=== PATIENT | male | born 1975 | race Caucasian/White ===

== ENCOUNTER 2018-01-05 19:37 | Emergency (ER) | payer BC, OTHER ==
--- NOTE | 2018-01-05 20:22 | PDOC ---
Rapid Medical Evaluation Time Seen by Provider: 01/05/18 20:18 Medical Evaluation: Allergies Allergy/AdvReac Type Severity Reaction Status Date / Time No Known Drug Allergies Allergy Verified 01/15/15 11:31 NUTS Allergy Severe Swelling Uncoded 01/15/15 11:31 I have performed a brief in-person evaluation of this patient. The patient presents with a chief complaint of: atraumatic left knee pain since this morning. Doesn't want any pain medication that will put him to sleep. Has not taken anything for pain. Expects to have a negative xray and get an orthopedic referral Pertinent physical exam findings: minimal swelling to left knee. No erythema, streaking or warmth to knee I have ordered the following: xray left knee The patient will proceed to the ED for further evaluation. Discharge Disposition - Diagnosis Osteoarthritis Knee pain, left Qualifiers: Chronicity: acute Qualified Code(s): M25.562 - Pain in left knee - Referrals Referrals: Samuel Gibbons MD [Staff Physician] - - Patient Instructions - Post Discharge Activity
[2018-01-05 20:34] VITALS: BP 186/113; PULSE 106; TEMP 99.6; BMI 33.5
--- NOTE | 2018-01-05 22:08 | PDOC ---
History of Present Illness - History of Present Illness Initial Comments: 01/05/18 22:10 Patient is a 42M with PMHx of HTN, who presents to fast track with posterior knee pain since this morning. He states that last night he felt that his leg didn't feel right. He reports pain is localized right behind the knee. He denies recent trauma, travel, or strenuous activity. He denies recent shortness of breath. <Starr Burnett - Last Filed: 01/05/18 22:15> <Azra Jiménez - Last Filed: 01/05/18 22:40> - General Chief Complaint: Pain Stated Complaint: KNEE PAIN Time Seen by Provider: 01/05/18 20:18 Past History <Starr Burnett - Last Filed: 01/05/18 22:15> - Past Medical History Anemia: No Asthma: No Cancer: No Cardiac Disorders: No CVA: No COPD: No Dementia: No Diabetes: No Dialysis: No GI Disorders: No Disorders: No HTN: Yes (USUALLY HIGH EVEN TAKING MEDS) Hypercholesterolemia: No Kidney Stones: No Liver Disease: No Seizures: No Thyroid Disease: No - Surgical History Abdominal Surgery: No Appendectomy: No Cardiac Surgery: No Cholecystectomy: No Lung Surgery: No Neurologic Surgery: No - Suicide/Smoking/Psychosocial Hx Smoking Status: No Smoking History: Never smoked Have you smoked in the past 12 months: No Number of Cigarettes Smoked Daily: 0 Information on smoking cessation initiated: No Hx Alcohol Use: No Drug/Substance Use Hx: No Substance Use Type: Alcohol <Azra Jiménez - Last Filed: 01/05/18 22:40> - Past Medical History Allergies/Adverse Reactions: Allergies Allergy/AdvReac Type Severity Reaction Status Date / Time No Known Drug Allergies Allergy Verified 01/05/18 20:24 NUTS Allergy Severe Swelling Uncoded 01/15/15 11:31 Home Medications: Ambulatory Orders Diclofenac Sodium 75 mg PO BID #14 tablet. 01/05/18 Review of Systems - Review of Systems Comments:: 01/05/18 22:10 GENERAL/CONSTITUTIONAL: No fever or chills. No weakness. HEAD, EYES, EARS, NOSE AND THROAT: No change in vision. No ear pain or discharge. No sore throat. GASTROINTESTINAL: No nausea, vomiting, diarrhea or constipation. CARDIOVASCULAR: No chest pain or shortness of breath. RESPIRATORY: No cough, wheezing, or hemoptysis. MUSCULOSKELETAL: +right posterior knee pain. No neck or back pain. SKIN: No rash NEUROLOGIC: No headache, vertigo, loss of consciousness, or change in strength/ sensation. <Starr Burnett - Last Filed: 01/05/18 22:15> *Physical Exam - Vital Signs Last Vital Signs Temp Pulse Resp BP Pulse Ox 99.6 F 106 H 18 186/113 96 01/05/18 20:25 01/05/18 20:25 01/05/18 20:25 01/05/18 20:25 01/05/18 20:25 - Physical Exam Comments: 01/05/18 22:11 GENERAL: Awake, alert, and fully oriented, in no acute distress HEAD: No signs of trauma EYES: PERRLA, EOMI, sclera anicteric, conjunctiva clear ENT: Auricles normal inspection, hearing grossly normal, nares patent, oropharynx clear without exudates. Moist mucosa NECK: Normal ROM, supple, no lymphadenopathy, JVD, or masses LUNGS: Breath sounds equal, clear to auscultation bilaterally. No wheezes, and no crackles HEART: Regular rate and rhythm, normal S1 and S2, no murmurs, rubs or gallops ABDOMEN: Soft, nontender, normoactive bowel sounds. No guarding, no rebound. No masses EXTREMITIES: Mild tenderness to posterior aspect of left knee. No calf tenderness. No erythema, swelling, or tenderness to the rest of the knee. Normal range of motion. NEUROLOGICAL: Cranial nerves II through XII grossly intact. Normal speech, normal gait SKIN: Warm, Dry, normal turgor, no rashes or lesions noted. <Starr Burnett - Last Filed: 01/05/18 22:15> - Vital Signs Last Vital Signs Temp Pulse Resp BP Pulse Ox 99.6 F 106 H 18 186/113 96 01/05/18 20:25 01/05/18 20:25 01/05/18 20:25 01/05/18 20:25 01/05/18 20:25 <Azra Jiménez - Last Filed: 01/05/18 22:40> ED Treatment Course - RADIOLOGY Radiology Studies Ordered: Category Date Time Status DUPLEX VASCUL US-1 LEG [US] Stat Ultrasound 01/05/18 21:52 Ordered <Azra Jiménez - Last Filed: 01/05/18 22:40> Medical Decision Making - Medical Decision Making 01/05/18 22:15 Patient is a 42M who presents with posterior knee pain since this morning. X ray shows mild suprapatellar effusion. No pain to anterior aspect of left knee. Will order ultrasound to rule out DVT. <Starr Burnett - Last Filed: 01/05/18 22:15> - Medical Decision Making Ultrasound negative for DVT. Advised patient to take medication as prescribed and follow up with orthopedics this week. Advised patient of signs and symptoms for return to ED. Patient verbalized understanding and agrees to plan. <Azra Jiménez - Last Filed: 01/05/18 22:40> *DC/Admit/Observation/Transfer - Attestations Scribe Attestion: 01/05/18 22:12 Documentation prepared by Starr Burnett, acting as pediatrician/medical doctor for LYN Enciso. <Starr Burnett - Last Filed: 01/05/18 22:15> - Discharge Dispostion Admit: No <JessyAzra - Last Filed: 01/05/18 22:40> Diagnosis at time of Disposition: Osteoarthritis Knee pain, left Qualifiers: Chronicity: acute Qualified Code(s): M25.562 - Pain in left knee - Discharge Dispostion Disposition: HOME Condition at time of disposition: Stable - Prescriptions Prescriptions: Diclofenac Sodium 75 mg PO BID #14 tablet.dr - Referrals Referrals: Samuel Gibbons MD [Staff Physician] - - Patient Instructions Printed Discharge Instructions: DI for Knee Pain Additional Instructions: Please take medication as prescribed.You must follow up with an orthopedics THIS WEEK for further evaluation and a possible MRI or physical therapy. If you experience any swelling, redness, warmth, or increased pain to your knee, or you develop fever, chills, vomiting or diarrhea, or any new or worsening symptoms, please return to the ER. - Post Discharge Activity
== END 2018-01-05 22:58 | disposition home or self-care (01) ==
LOC: JERFT 19:37
DX: M17.12 Unilateral primary osteoarthritis, left knee (principal); M25.462 Effusion, left knee
CPT/HCPCS: 73560-TC-LT-FY; 93971-TC; 99281-25

== ENCOUNTER 2024-09-26 19:13 | Observation (INO) | payer BC, OTHER ==
[2024-09-26 20:20] VITALS: BMI 23.7
[2024-09-26 22:58] LABS: HEMATOCRIT 22.3 % (35.4-49); MCH 28.1 pg (25.7-33.7); MCHC 31.3 g/dl (32.0-35.9); MEAN CELL VOLUME 89.7 fl (80-96); MEAN PLT VOLUME 6.5 fl (7.5-11.1); PLATELET COUNT 352 10^3/uL (134-434); RBC 2.48 M/mm3 (4.00-5.60); WHITE BLOOD COUNT 11.4 K/mm3 (4.0-10.0)
[2024-09-26 23:16] LABS: CHLORIDE 102 mmol/L (98-107); POTASSIUM 4.7 mmol/L (3.5-5.1); SODIUM 134 mmol/L (136-145)
[2024-09-26 23:18] LABS: CALCIUM 8.8 mg/dL (8.5-10.1)
[2024-09-26 23:19] LABS: ALBUMIN 2.1 g/dl (3.4-5.0); ANION GAP 10 mmol/L (4-13); BLOOD UREA NITROGEN 56.3 mg/dL (7-18); CO2 23 mmol/L (21-32); GLUCOSE,RANDOM 92 mg/dL (74-106)
[2024-09-26 23:22] LABS: PHOSPHOROUS 4.3 mg/dL (2.5-4.9); SGOT/AST 16 U/L (15-37); SGPT/ALT 26 U/L (13-61)
[2024-09-26 23:23] LABS: BILIRUBIN,TOTAL 0.6 mg/dL (0.2-1); TOT PROT 6.7 g/dl (6.4-8.2)
[2024-09-26 23:25] LABS: ALK PHOS 151 U/L (45-117)
[2024-09-26 23:29] LABS: CREATININE 9.7 mg/dL (0.55-1.3); INR 1.87 (0.83-1.09); PROTHROMBIN TIME (PATIENT) 20.7 SEC (9.7-13.0)
[2024-09-26 23:32] LABS: ACTIVATED PTT 38.9 SECONDS (25.2-36.5)
[2024-09-27 00:15] LABS: MACROCYTOSIS 0; TARGET CELLS 1+
[2024-09-27] MEDS ORDERED: ACETAMINOPHEN 325 MG TABLET (FP) ONE (02:15)
[2024-09-27] MEDS: ACETAMINOPHEN 325 MG TABLET (FP) PO ONE (02:42)
[2024-09-27 07:29] LABS: HEMATOCRIT 23.1 % (35.4-49); HEMOGLOBIN 7.5 GM/dL (11.7-16.9); MCH 29.2 pg (25.7-33.7); MCHC 32.3 g/dl (32.0-35.9); MEAN CELL VOLUME 90.4 fl (80-96); MEAN PLT VOLUME 6.3 fl (7.5-11.1); PLATELET COUNT 421 10^3/uL (134-434); RBC 2.56 M/mm3 (4.00-5.60); RDW 16.6 % (11.9-15.9); WHITE BLOOD COUNT 11.3 K/mm3 (4.0-10.0)
[2024-09-27 07:44] LABS: CHLORIDE 103 mmol/L (98-107); POTASSIUM 4.5 mmol/L (3.5-5.1); SODIUM 135 mmol/L (136-145)
[2024-09-27 07:45] LABS: ANION GAP 10 mmol/L (4-13); BLOOD UREA NITROGEN 60.6 mg/dL (7-18); CALCIUM 9.1 mg/dL (8.5-10.1); CO2 22 mmol/L (21-32)
[2024-09-27 07:46] LABS: ALBUMIN 2.2 g/dl (3.4-5.0); GLUCOSE,RANDOM 86 mg/dL (74-106)
[2024-09-27 07:48] LABS: SGPT/ALT 25 U/L (13-61)
[2024-09-27 07:49] LABS: SGOT/AST 14 U/L (15-37)
[2024-09-27 07:50] LABS: TOT PROT 6.9 g/dl (6.4-8.2)
[2024-09-27 07:51] LABS: ALK PHOS 158 U/L (45-117)
[2024-09-27 07:58] LABS: CREATININE 10.4 mg/dL (0.55-1.3)
[2024-09-27] MEDS: VANCOMYCIN ORAL SOLUTION 125 MG/2.5 ML PO SCH (08:27)
[2024-09-27 08:48] VITALS: RESP 20
[2024-09-27] MEDS ORDERED: SEVELAMER CARBONATE 800 MG TAB (FP) ONE ×3 (09:30→17:19)
[2024-09-27] MEDS ORDERED: THIAMINE 100 MG TABLET ONE (09:33)
[2024-09-27] MEDS ORDERED: PANTOPRAZOLE 40 MG TABLET PO ONE ×2 (09:33→21:37)
[2024-09-27] MEDS ORDERED: ISOSORBIDE MONONITRATE 60 MG TAB.SR.24H (FP) PO ONE (09:33)
[2024-09-27] MEDS ORDERED: FOLIC ACID 1 MG TABLET (FP) ONE (09:41)
[2024-09-27] MEDS: ISOSORBIDE MONONITRATE 60 MG TAB.SR.24H (FP) PO SCH (09:51)
[2024-09-27] MEDS: FOLIC ACID 1 MG TABLET (FP) PO SCH (09:51)
[2024-09-27] MEDS: SEVELAMER CARBONATE 800 MG TAB (FP) PO SCH (09:51)
[2024-09-27] MEDS: VITAMIN B COMP W-C 1 EA TABLET (NEPHRO-VITE) PO SCH (09:52)
[2024-09-27] MEDS: THIAMINE 100 MG TABLET PO SCH (09:52)
[2024-09-27] MEDS: PANTOPRAZOLE 40 MG TABLET PO SCH (09:52)
[2024-09-27] MEDS ORDERED: VANCOMYCIN HCL 125 MG PO SCH (10:00)
[2024-09-27] MEDS ORDERED: ERGOCALCIFEROL (VIT D2) 50,000 UNIT (1.25 MG) CAPSULE PO SCH (10:00)
[2024-09-27 10:28] LABS: ANISOCYTOSIS 0; HELMET CELLS 0; HOWELL-JOLLY BODIES 0; MACROCYTOSIS 0; OVALOCYTE 0; ROULEAU 0; SICKELED CELLS 0; TARGET CELLS 0; TEAR DROP CELLS 0; TOXIC GRANULATION 0
[2024-09-27] MEDS ORDERED: SODIUM CHLORIDE 250 ML IV PRN (14:50)
[2024-09-27] MEDS ORDERED: EPOETIN ALFA-EPBX 10,000 UNIT/ML VIAL SQ ONE (14:50)
[2024-09-27] MEDS: IRON SUCROSE INJECTION 100 MG in SODIUM CHLORIDE 95 ML IVPB ONE (17:53)
[2024-09-27 21:58] VITALS: TEMP 97.1
[2024-09-27] MEDS ORDERED: LOSARTAN POTASSIUM 50 MG TABLET PO SCH (22:00)
[2024-09-28 08:06] LABS: HEMOGLOBIN 7.7 GM/dL (11.7-16.9); MCH 29.1 pg (25.7-33.7); MCHC 32.1 g/dl (32.0-35.9); MEAN CELL VOLUME 90.6 fl (80-96); MEAN PLT VOLUME 6.5 fl (7.5-11.1); PLATELET COUNT 441 10^3/uL (134-434); RBC 2.65 M/mm3 (4.00-5.60); RDW 17.2 % (11.9-15.9); WHITE BLOOD COUNT 12.4 K/mm3 (4.0-10.0)
[2024-09-28 08:11] LABS: CHLORIDE 104 mmol/L (98-107); SODIUM 134 mmol/L (136-145)
[2024-09-28 08:16] LABS: BLOOD UREA NITROGEN 66.9 mg/dL (7-18)
[2024-09-28 08:17] LABS: ALBUMIN 2.2 g/dl (3.4-5.0); ANION GAP 9 mmol/L (4-13); CO2 21 mmol/L (21-32); GLUCOSE,RANDOM 82 mg/dL (74-106)
[2024-09-28 08:19] LABS: SGPT/ALT 21 U/L (13-61)
[2024-09-28 08:20] LABS: SGOT/AST 14 U/L (15-37)
[2024-09-28 08:21] LABS: BILIRUBIN,TOTAL 0.6 mg/dL (0.2-1); CREATININE 10.8 mg/dL (0.55-1.3); TOT PROT 6.9 g/dl (6.4-8.2)
[2024-09-28 08:22] LABS: ALK PHOS 149 U/L (45-117)
[2024-09-28 08:58] VITALS: BP 144/89; PULSE 128
[2024-09-28 09:45] LABS: ANISOCYTOSIS 0; HELMET CELLS 0; HOWELL-JOLLY BODIES 0; MACROCYTOSIS 0; OVALOCYTE 0; ROULEAU 0; SICKELED CELLS 0; TARGET CELLS 0; TEAR DROP CELLS 0; TOXIC GRANULATION 0
[2024-09-28] MEDS: IRON SUCROSE INJECTION 100 MG in SODIUM CHLORIDE 95 ML IVPB ONE (13:46)
[2024-09-28] MEDS ORDERED: ACETAMINOPHEN 325 MG TABLET (FP) ONE (14:43)
[2024-09-28] MEDS: ACETAMINOPHEN 325 MG TABLET (FP) PO PRN (14:44)
== END 2024-09-28 15:13 ==
LOC: JER 19:13 → JERBED 09-27 00:08
PROVIDERS: ADMIT Internal Medicine; ATTEND Registered Nurse
PROC: 30233N1 Transfusion of Nonautologous Red Blood Cells into Peripheral Vein, Percutaneous Approach (ICD-10-PCS; principal; 2024-09-27)
DX: D64.9 Anemia, unspecified (principal); I12.0 Hypertensive chronic kidney disease with stage 5 chronic kidney disease or end stage renal disease; N18.6 End stage renal disease; Z99.2 Dependence on renal dialysis; R79.9 Abnormal finding of blood chemistry, unspecified; I25.2 Old myocardial infarction; I48.91 Unspecified atrial fibrillation; Z79.01 Long term (current) use of anticoagulants; B96.7 Clostridium perfringens [C. perfringens] as the cause of diseases classified elsewhere
CPT/HCPCS: 36415; 80053; 82728; 83540; 83550; 83735; 84100; 85025; 85610; 85730; 86870; 86880; 86902; 86922; 93005; 93010; 96365; 96366; 99285-25; G0378; J1756